=== PATIENT | male | born 1975 | race Caucasian/White ===

== ENCOUNTER 2024-09-03 08:06 | Day surgery (SDC) | payer OTHER ==
[~2024-09-03 08:06] MED LIST: Sodium Chloride 0.9% 10 ML Syringe FLUSH PRN
[2024-09-03] MEDS ORDERED: fentaNYL 100 MCG/2 ML SDV IV ONE (08:07)
[2024-09-03] MEDS ORDERED: Midazolam 1 MG/ML 2 ML SDV IV ONE (08:07)
[2024-09-03] MEDS ORDERED: Propofol 200 MG/20 ML SDV IV ONE (08:07)
[2024-09-03] MEDS: Lactated Ringers 1,000 ML IV SCH (08:42)
[2024-09-03] MEDS: Simethicone Drops 40 MG/0.6 ML 30 ML Bottle ONE (09:27)
== END 2024-09-03 10:40 | disposition home or self-care (01) ==
LOC: FB.SDS 08:06
PROVIDERS: ATTEND Surgery
DX: K62.5 Hemorrhage of anus and rectum (principal); F17.210 Nicotine dependence, cigarettes, uncomplicated
CPT/HCPCS: 45378; A9270; J2250; J2704; J3010; J7120; 00811

== ENCOUNTER 2024-11-22 06:09 | Day surgery (SDC) | payer OTHER ==
[2024-11-22] MEDS ORDERED: fentaNYL 100 MCG/2 ML SDV IV ONE (06:10)
[2024-11-22] MEDS ORDERED: Ketorolac 30 MG/ML SDV IVPUSH ONE (06:10)
[2024-11-22] MEDS ORDERED: Ondansetron 4 MG/2 ML SDV IVPUSH ONE (06:10)
[2024-11-22] MEDS ORDERED: Midazolam 1 MG/ML 2 ML SDV IV ONE (06:10)
[2024-11-22] MEDS ORDERED: diphenhydrAMINE 50 MG/ML SDV IVPUSH ONE (06:10)
[2024-11-22] MEDS ORDERED: Propofol 200 MG/20 ML SDV IV ONE (06:10)
[2024-11-22] MEDS ORDERED: Dexamethasone 4 MG/ML 5 ML MDV IVPUSH ONE (06:10)
[2024-11-22] MEDS ORDERED: Sodium Chloride 0.9% 10 ML Syringe FLUSH PRN (06:15)
[2024-11-22] MEDS: Lactated Ringers 1,000 ML IV SCH (07:01)
[2024-11-22] MEDS: Lidocaine 1% with EPINEPHrine 1:100,000 20 ML MDV INJECT ONE (07:48)
== END 2024-11-22 10:20 | disposition home or self-care (01) ==
LOC: FB.SDS 06:09
PROVIDERS: ATTEND Surgery
DX: K40.30 Unilateral inguinal hernia, with obstruction, without gangrene, not specified as recurrent (principal); F17.210 Nicotine dependence, cigarettes, uncomplicated; Z79.899 Other long term (current) drug therapy
CPT/HCPCS: 00830; 88302; A9270-GY; C1781; J0665; J0690; J1100; J1200; J1885; J2004; J2250; J2405; J2704; J3010; J7120